=== PATIENT | male | born 1975 | race African-American/Black ===

== ENCOUNTER 2021-01-03 06:30 | Day surgery (SDC) | payer OTHER ==
[2021-01-02 14:27] LABS: COVID AG,FIA SOURCE NASOPHARYNGEAL
[~2021-01-03] VITALS: Ht 175.3 cm; Wt 70.4 kg
[~2021-01-03 06:30] MED LIST: SODIUM CHLORIDE 0.9% 1,000 ML IV ONE
[2021-01-03] MEDS ORDERED: LIDOCAINE 4% 50 ML SOLUTION TP ONE (06:31)
[2021-01-03] MEDS ORDERED: LIDOCAINE 2% 30 ML JELLY TP ONE (06:31)
[2021-01-03] MEDS ORDERED: GLYCOPYRROLATE 0.2 MG/ML VIAL IM ONE (06:31)
[2021-01-03] MEDS ORDERED: BENZOCAINE 20% 50 MCG/SPRAY 57 GM TP ONE (06:31)
[2021-01-03] MEDS ORDERED: MIDAZOLAM HCL 5 MG/ML VIAL ONE (07:50)
[2021-01-03] MEDS ORDERED: FentaNYL CITRATE PF 100 MCG/2 ML VIAL ONE (07:50)
[2021-01-03] MEDS ORDERED: FAMO20 PO (09:15)
[2021-01-03] MEDS ORDERED: PRED10 PO (09:15)
[2021-01-03] MEDS ORDERED: MONT-35 PO (09:15)
[2021-01-03] MEDS ORDERED: MethylPREDNISolone SOD SUCC 125 MG/2 ML VIAL IVP ONE (09:30)
[2021-01-03] MEDS ORDERED: MethylPREDNISolone SOD SUCC 125 MG/2 ML VIAL ONE (10:09)
[2021-01-03] MEDS ORDERED: OXYGEN THERAPY IH SCH (20:00)
== END 2021-01-03 12:05 | disposition home or self-care (01) ==
LOC: SURGERY 06:30
PROVIDERS: ATTEND Internal Medicine Critical Care Medicine
DX: J38.4 Edema of larynx (principal); B37.0 Candidal stomatitis; Z91.018 Allergy to other foods; J45.909 Unspecified asthma, uncomplicated; Z79.899 Other long term (current) drug therapy; Z98.890 Other specified postprocedural states
CPT/HCPCS: 31623; 31624; 71045; 87015; 87070; 87101; 87205; 87206; 87220; 87426; 88108; 88184; 88185; 88312; C9803; J2250; J2930; J3010; J3490; Z7610